=== PATIENT | male | born 1985 | race Caucasian/White ===

== ENCOUNTER 2018-09-08 20:29 | Emergency (ER) | payer SELFPAY ==
[~2018-09-08] VITALS: Ht 190.5 cm; Wt 74.8 kg
--- NOTE | 2018-09-08 20:31 | ED.ADGEN ---
Past History Past Medical History: Other Past Medical History Polysubstance abuse Adult General Chief Complaint Chief Complaint ".. I think somebody gave me rat poison.... They said it was ecstasy... But all it did was make me sick... Short of breath... And sweat.. I am a recovering heroin addict... I know my drugs.. Usually with ecstasy.. your high in 30 minutes... " HPI HPI Patient is a 33 year old male who presents with above hx and complaints dyspnea, nausea, diarrhea, diaphoresis, malaise, after taking reported taking ecstasy at 0200 today. Patient has history of polysubstance abuse and currently in drug rehabilitation for heroin abuse. Patient denies HIV, specific ill contacts, travel. No history of trauma. No history of bad food. Had normal stool today. Does admit to illicit drug use. Patient does smoke. Review of Systems Review of Systems Constitutional: complaints fever and chills [] Eyes: Denies change in visual acuity, redness, or eye pain [] HENT: Denies nasal congestion or sore throat [] Respiratory: Complaints of shortness of breath [] Cardiovascular: No additional information not addressed in HPI [] GI: Denies abdominal pain, vomiting, bloody stools. Complains of nausea and diarrhea [] : Denies dysuria or hematuria [] Musculoskeletal: Denies back pain or joint pain [] Integument: Denies rash or skin lesions [] Neurologic: Denies headache, focal weakness or sensory changes [] Endocrine: Denies polyuria or polydipsia [] All other systems were reviewed and found to be within normal limits, except as documented in this note. Family History Family History Non-contributory Current Medications Current Medications Current Medications Medications (Trade) Dose Ordered Sig/Naheed Start Time Stop Time Status Last Admin Dose Admin Iohexol (Omnipaque 350 Mg/ml) 100 ml 1X ONCE 09/08/18 22:15 09/08/18 22:16 DC 09/08/18 22:20 100 ML Lactated Ringer's 1,000 ml @ 1,000 mls/hr Q1H 09/08/18 20:32 09/08/18 21:32 DC 09/08/18 21:53 1,000 MLS/HR Allergies Allergies Allergies Coded Allergies Type Severity Reaction Last Updated Verified cefixime Allergy Unknown 09/08/18 Yes Physical Exam Physical Exam Constitutional: Well developed, well nourished, no acute distress, non-toxic appearance. [] HENT: Normocephalic, atraumatic, bilateral external ears normal, oropharynx moist, no oral exudates, nose normal. [] Eyes: PERRLA, EOMI, conjunctiva normal, no discharge. [] Neck: Normal range of motion, no tenderness, supple, no stridor. [] Cardiovascular:Heart rate regular rhythm, no murmur [] Lungs & Thorax: Bilateral breath sounds equal at apexes with scattered wheezes on auscultation [] Abdomen: Bowel sounds normal, soft, no tenderness, no masses, no pulsatile masses. [] Skin: Warm, dry, no erythema, no rash. [] Back: No tenderness, no CVA tenderness. [] Extremities: No tenderness, no cyanosis, no clubbing, ROM intact, no edema. [] Neurologic: Alert and oriented X 3, normal motor function, normal sensory function, no focal deficits noted. [] Psychologic: Affect anxious, judgement normal, mood normal. [] Current Patient Data Vital Signs Vital Signs Date Time Temp Pulse Resp B/P (MAP) Pulse Ox O2 Delivery O2 Flow Rate FiO2 09/08/18 23:36 91 18 133/77 (95) 97 Room Air 09/08/18 20:35 98.6 Lab Results Laboratory Tests Test 09/08/18 20:50 09/08/18 21:30 White Blood Count 8.3 x10^3/uL (4.0-11.0) Red Blood Count 5.23 x10^6/uL (4.30-5.70) Hemoglobin 16.3 g/dL (13.0-17.5) Hematocrit 48.2 % (39.0-53.0) Mean Corpuscular Volume 92 fL (79-100) Mean Corpuscular Hemoglobin 31 pg (25-35) Mean Corpuscular Hemoglobin Concent 34 g/dL (31-37) Red Cell Distribution Width 12.9 % (11.5-14.5) Platelet Count 166 x10^3/uL (140-400) Neutrophils (%) (Auto) 74 % (31-73) H Lymphocytes (%) (Auto) 20 % (24-48) L Monocytes (%) (Auto) 5 % (0-9) Eosinophils (%) (Auto) 1 % (0-3) Basophils (%) (Auto) 0 % (0-3) Neutrophils # (Auto) 6.1 x10^3uL (1.8-7.7) Lymphocytes # (Auto) 1.7 x10^3/uL (1.0-4.8) Monocytes # (Auto) 0.4 x10^3/uL (0.0-1.1) Eosinophils # (Auto) 0.0 x10^3/uL (0.0-0.7) Basophils # (Auto) 0.0 x10^3/uL (0.0-0.2) Prothrombin Time 9.9 SEC (9.4-11.4) Prothrombin Time INR 1.0 (0.9-1.1) PTT 29 SEC (23-33) D-Dimer ([place]na) 0.36 mg/L (0.00-0.50) Sodium Level 140 mmol/L (136-145) Potassium Level 3.9 mmol/L (3.5-5.1) Chloride Level 101 mmol/L (98-107) Carbon Dioxide Level 28 mmol/L (21-32) Anion Gap 11 (6-14) Blood Urea Nitrogen 8 mg/dL (8-26) Creatinine 1.0 mg/dL (0.7-1.3) Estimated GFR (Cockcroft-Gault) 87.2 Glucose Level 127 mg/dL (70-99) H Calcium Level 9.5 mg/dL (8.5-10.1) Magnesium Level 1.8 mg/dL (1.8-2.4) Total Bilirubin 0.4 mg/dL (0.2-1.0) Direct Bilirubin 0.1 mg/dL (0.0-0.2) Aspartate Amino Transferase (AST) 16 U/L (15-37) Alanine Aminotransferase (ALT) 40 U/L (16-63) Alkaline Phosphatase 84 U/L (46-116) Creatine Kinase 101 U/L (39-308) Troponin I Quantitative < 0.017 ng/mL (0-0.055) Total Protein 7.4 g/dL (6.4-8.2) Albumin 4.1 g/dL (3.4-5.0) Amylase Level 40 U/L (25-115) Lipase 72 U/L (73-393) L Urine Collection Type Unknown Urine Color Yellow Urine Clarity Clear Urine pH 7.5 Urine Specific [place] 1.015 Urine Protein Neg (NEG-TRACE) Urine Glucose (UA) Neg mg/dL (NEG) Urine Ketones (Stick) Neg mg/dL (NEG) Urine Blood Neg (NEG) Urine Nitrite Neg (NEG) Urine Bilirubin Neg (NEG) Urine Urobilinogen Dipstick 0.2 mg/dL (0.2 mg/dL) Urine Leukocyte Esterase Neg (NEG) Urine RBC 0 /HPF (0-2) Urine WBC Occ /HPF (0-4) Urine Squamous Epithelial Cells Occ /LPF Urine Bacteria 0 /HPF (0-FEW) Urine Opiates Screen Pos (NEG) Urine Methadone Screen Neg (NEG) Urine Barbiturates Neg (NEG) Urine Phencyclidine Screen Neg (NEG) Urine Amphetamine/Methamphetamine Pos (NEG) Urine Benzodiazepines Screen Neg (NEG) Urine Cocaine Screen Neg (NEG) Urine Cannabinoids Screen Pos (NEG) Urine Ethyl Alcohol Neg (NEG) EKG EKG My interpretation EKG shows sinus rhythm at 86 bpm. No findings acute STEMI with contralateral changes[] Radiology/Procedures Radiology/Procedures [[address] [address] IMAGING REPORT Signed PATIENT: ZANE GRANT ACCOUNT: [id number] : 1985 LOCATION: ER AGE: 33 SEX: M EXAM STATUS: REG ER ORD. PHYSICIAN: KAYLEN REEVES MD REASON: ACCIDENTAL INGESTION, ABDOMINAL PAIN PROCEDURE: ABDOMEN SUPINE & UPRIGHT PA and lateral chest x-ray HISTORY: Chest pain. Accidental ingestion. FINDINGS: Heart size normal. Mediastinal silhouette is normal. Air trapping with hyperinflation of the lungs and flattening of the diaphragms could be due to asthma. Emphysema would be unlikely given the patient's age. No pneumothorax, pulmonary opacities or pleural effusions. Bones are unremarkable. IMPRESSION: Hyperinflation of the lungs suggesting air trapping perhaps from asthma exacerbation. AP upright supine abdomen x-rays 2 views HISTORY: Chest and abdomen pain, accidental ingestion. FINDINGS: No pneumoperitoneum. Mild volume of stool right-sided colon and transverse colon. Mild gaseous distention of small bowel loops at the upper and mid abdomen maximum diameter 3.5 cm, with lesser gas distention within the large bowel. Bones and soft tissues are unremarkable. IMPRESSION: Mild gaseous distention of the small bowel could indicate mild changes of ileus or low-grade distal small bowel obstruction. Electronically signed by: Noble Fowler MD (09/08/2018 9:40 PM) [facility] DICTATED AND SIGNED BY: NOBLE FOWLER MD DATE: 09/08/182139 CC: KAYLEN REEVES MD; PCP,NO ~ ][address] [address] IMAGING REPORT Signed PATIENT: ZANE GRANT ACCOUNT: [id number] : 1985 LOCATION: ER AGE: 33 SEX: M EXAM STATUS: REG ER ORD. PHYSICIAN: KAYLEN REEVES MD REASON: DYSPNEA, ABNORMAL CXR PROCEDURE: CT ANGIOGRAPHY CHEST CT angiography chest with contrast PQRS statement: CT scans at this facility use dose reduction including either automated exposure control, iterative reconstructions, and /or weight based radiation dosing via mA and kV modification when appropriate to reduce radiation dose to as low as reasonably achievable. HISTORY: Dyspnea, abnormal chest x-ray. TECHNIQUE: Helical CT imaging the chest with 3-D MIP reconstructions of the pulmonary arteries to assess for emboli with 90 mL Omnipaque 350 intravenous contrast. FINDINGS: Changes of thoracic degenerative disc disease. Left renal upper pole 1 cm cyst density of 7 units. Heart size normal. Thoracic aorta and esophagus are unremarkable. No pulmonary artery emboli. Subcentimeter hilar lymph nodes no enlarged adenopathy in the chest. Bronchial wall thickening with luminal narrowing likely bronchitis. No pneumothorax, pulmonary opacities or pleural effusions. IMPRESSION: 1. No pulmonary artery emboli. 2. Bronchial wall thickening with luminal narrowing likely bronchitis. Electronically signed by: Noble Fowler MD (09/08/2018 10:51 PM) [facility] DICTATED AND SIGNED BY: NOBLE FOWLER MD DATE: 09/08/18 2756 Course & Med Decision Making Course & Med Decision Making Pertinent Labs and Imaging studies reviewed. (See chart for details) Pt. encouraged to avoid illicit drug use. Pt. to follow up with primary. Review pending cultures and labs. Return if any concerns. [] Final Impression Final Impression 1. Hx Polysubstance Abuse[] Dragon Disclaimer Dragon Disclaimer This electronic medical record was generated, in whole or in part, using a voice recognition dictation system. Discharge Summary Visit Information Final Diagnosis Problems Medical Problems: (1) Polysubstance abuse Status: Acute Brief Hospital Course Allergies Allergies Coded Allergies Type Severity Reaction Last Updated Verified cefixime Allergy Unknown 09/08/18 Yes Vital Signs Vital Signs Date Time Temp Pulse Resp B/P (MAP) Pulse Ox O2 Delivery O2 Flow Rate FiO2 09/08/18 23:36 91 18 133/77 (95) 97 Room Air 09/08/18 20:35 98.6 Lab Results Laboratory Tests Test 09/08/18 20:50 09/08/18 21:30 White Blood Count 8.3 x10^3/uL (4.0-11.0) Red Blood Count 5.23 x10^6/uL (4.30-5.70) Hemoglobin 16.3 g/dL (13.0-17.5) Hematocrit 48.2 % (39.0-53.0) Mean Corpuscular Volume 92 fL (79-100) Mean Corpuscular Hemoglobin 31 pg (25-35) Mean Corpuscular Hemoglobin Concent 34 g/dL (31-37) Red Cell Distribution Width 12.9 % (11.5-14.5) Platelet Count 166 x10^3/uL (140-400) Neutrophils (%) (Auto) 74 % (31-73) Lymphocytes (%) (Auto) 20 % (24-48) Monocytes (%) (Auto) 5 % (0-9) Eosinophils (%) (Auto) 1 % (0-3) Basophils (%) (Auto) 0 % (0-3) Neutrophils # (Auto) 6.1 x10^3uL (1.8-7.7) Lymphocytes # (Auto) 1.7 x10^3/uL (1.0-4.8) Monocytes # (Auto) 0.4 x10^3/uL (0.0-1.1) Eosinophils # (Auto) 0.0 x10^3/uL (0.0-0.7) Basophils # (Auto) 0.0 x10^3/uL (0.0-0.2) Prothrombin Time 9.9 SEC (9.4-11.4) Prothromb Time International Ratio 1.0 (0.9-1.1) Activated Partial Thromboplast Time 29 SEC (23-33) D-Dimer ([place]na) 0.36 mg/L (0.00-0.50) Sodium Level 140 mmol/L (136-145) Potassium Level 3.9 mmol/L (3.5-5.1) Chloride Level 101 mmol/L (98-107) Carbon Dioxide Level 28 mmol/L (21-32) Anion Gap 11 (6-14) Blood Urea Nitrogen 8 mg/dL (8-26) Creatinine 1.0 mg/dL (0.7-1.3) Estimated GFR (Cockcroft-Gault) 87.2 Glucose Level 127 mg/dL (70-99) Calcium Level 9.5 mg/dL (8.5-10.1) Magnesium Level 1.8 mg/dL (1.8-2.4) Total Bilirubin 0.4 mg/dL (0.2-1.0) Direct Bilirubin 0.1 mg/dL (0.0-0.2) Aspartate Amino Transf (AST/SGOT) 16 U/L (15-37) Alanine Aminotransferase (ALT/SGPT) 40 U/L (16-63) Alkaline Phosphatase 84 U/L (46-116) Creatine Kinase 101 U/L (39-308) Troponin I Quantitative < 0.017 ng/mL (0-0.055) Total Protein 7.4 g/dL (6.4-8.2) Albumin 4.1 g/dL (3.4-5.0) Amylase Level 40 U/L (25-115) Lipase 72 U/L (73-393) Urine Collection Type Unknown Urine Color Yellow Urine Clarity Clear Urine pH 7.5 Urine Specific [place] 1.015 Urine Protein Neg (NEG-TRACE) Urine Glucose (UA) Neg mg/dL (NEG) Urine Ketones (Stick) Neg mg/dL (NEG) Urine Blood Neg (NEG) Urine Nitrite Neg (NEG) Urine Bilirubin Neg (NEG) Urine Urobilinogen Dipstick 0.2 mg/dL (0.2 mg/dL) Urine Leukocyte Esterase Neg (NEG) Urine RBC 0 /HPF (0-2) Urine WBC Occ /HPF (0-4) Urine Squamous Epithelial Cells Occ /LPF Urine Bacteria 0 /HPF (0-FEW) Urine Opiates Screen Pos (NEG) Urine Methadone Screen Neg (NEG) Urine Barbiturates Neg (NEG) Urine Phencyclidine Screen Neg (NEG) Urine Amphetamine/Methamphetamine Pos (NEG) Urine Benzodiazepines Screen Neg (NEG) Urine Cocaine Screen Neg (NEG) Urine Cannabinoids Screen Pos (NEG) Urine Ethyl Alcohol Neg (NEG) Brief Hospital Course Mr. Grant is a 33 old male with hx of polysubstance use who presented with fears he was given rat poison this morning at 0200 hrs instead of Ectasey. Discharge Information Condition at Discharge: Improved, Stable Disposition/Orders: D/C to Home Dischare Medications Current Medications Lactated Ringer's 1,000 ml @ 1,000 mls/hr Q1H IV Last administered on 09/08/18at 21:53; Admin Dose 1,000 MLS/HR; Start 09/08/18 at 20:32; Stop 09/08/18 at 21:32; Status DC Iohexol (Omnipaque 350 Mg/ml) 100 ml 1X ONCE IV Last administered on 09/08/18at 22:20; Admin Dose 100 ML; Start 09/08/18 at 22:15; Stop 09/08/18 at 22:16; Status DC Dragon Disclaimer This chart was dictated in whole or in part using Voice Recognition software in a busy, high-work load, and often noisy Emergency Department environment. It may contain unintended and wholly unrecognized errors or omissions. KAYLEN REEVES MD Sep 08, 2018 20:31
[2018-09-08] MEDS ORDERED: IV RINGERS SOLUTION,LACTATED 1,000 ML IV SCH (20:32)
[2018-09-08 21:21] LABS: BASO % 0 % (0-3); EOS % 1 % (0-3); HEMATOCRIT 48.2 % (39.0-53.0); HEMOGLOBIN 16.3 g/dL (13.0-17.5); LYMPH # 1.7 x10^3/uL (1.0-4.8); LYMPH % 20 % (24-48); MEAN CORPUSCULAR HEMOGLOBIN 31 pg (25-35); MEAN CORPUSCULAR HGB CONC 34 g/dL (31-37); MEAN CORPUSCULAR VOLUME 92 fL (79-100); MONO # 0.4 x10^3/uL (0.0-1.1); MONO % 5 % (0-9); NEUT # 6.1 x10^3uL (1.8-7.7); NEUT % 74 % (31-73); PLATELET COUNT 166 x10^3/uL (140-400); RED BLOOD COUNT 5.23 x10^6/uL (4.30-5.70); RED CELL DISTRIBUTION WIDTH 12.9 % (11.5-14.5); WHITE BLOOD COUNT 8.3 x10^3/uL (4.0-11.0)
[2018-09-08 21:32] LABS: ALBUMIN 4.1 g/dL (3.4-5.0); CALCIUM 9.5 mg/dL (8.5-10.1); DIRECT BILIRUBIN 0.1 mg/dL (0.0-0.2); GFR 87.2; MAGNESIUM 1.8 mg/dL (1.8-2.4); POTASSIUM 3.9 mmol/L (3.5-5.1); TOTAL BILIRUBIN 0.4 mg/dL (0.2-1.0); TOTAL PROTEIN 7.4 g/dL (6.4-8.2)
--- NOTE | 2018-09-08 21:43 | RAD ---
PA and lateral chest x-ray HISTORY: Chest pain. Accidental ingestion. FINDINGS: Heart size normal. Mediastinal silhouette is normal. Air trapping with hyperinflation of the lungs and flattening of the diaphragms could be due to asthma. Emphysema would be unlikely given the patient's age. No pneumothorax, pulmonary opacities or pleural effusions. Bones are unremarkable. IMPRESSION: Hyperinflation of the lungs suggesting air trapping perhaps from asthma exacerbation. AP upright supine abdomen x-rays 2 views HISTORY: Chest and abdomen pain, accidental ingestion. FINDINGS: No pneumoperitoneum. Mild volume of stool right-sided colon and transverse colon. Mild gaseous distention of small bowel loops at the upper and mid abdomen maximum diameter 3.5 cm, with lesser gas distention within the large bowel. Bones and soft tissues are unremarkable. IMPRESSION: Mild gaseous distention of the small bowel could indicate mild changes of ileus or low-grade distal small bowel obstruction. Electronically signed by: Murtaza Fowler MD (09/08/2018 9:40 PM) [facility]
[2018-09-08] MEDS ORDERED: IOHEXOL 350 MG/ML 100 ML VIAL. IV ONE (22:15)
[2018-09-08 22:30] LABS: BARBITURATES NEG (NEG); BENZODIAZEPINES NEG (NEG); CANNABINOIDS POS (NEG); COCAINE NEG (NEG); METHADONE NEG (NEG); OPIATES POS (NEG); PHENCYCLIDINE NEG (NEG)
[2018-09-08 22:33] LABS: AMPHETAMINE/METHAMPHETAMINE POS (NEG)
[2018-09-08 22:41] LABS: BACTERIA,URINE 0 /HPF (0-FEW); BILIRUBIN,URINE NEG (NEG); CLARITY,URINE CLEAR; COLOR,URINE YELLOW; GLUCOSE,URINE NEG (NEG); NITRITE,URINE NEG (NEG); RBC,URINE 0 /HPF (0-2); SQUAMOUS EPITHELIAL CELL,UR OCC /LPF; UROBILINOGEN,URINE 0.2 mg/dL (0.2 mg/dL); WBC,URINE OCC /HPF (0-4)
--- NOTE | 2018-09-08 22:54 | RAD ---
CT angiography chest with contrast PQRS statement: CT scans at this facility use dose reduction including either automated exposure control, iterative reconstructions, and /or weight based radiation dosing via mA and kV modification when appropriate to reduce radiation dose to as low as reasonably achievable. HISTORY: Dyspnea, abnormal chest x-ray. TECHNIQUE: Helical CT imaging the chest with 3-D MIP reconstructions of the pulmonary arteries to assess for emboli with 90 mL Omnipaque 350 intravenous contrast. FINDINGS: Changes of thoracic degenerative disc disease. Left renal upper pole 1 cm cyst density of 7 units. Heart size normal. Thoracic aorta and esophagus are unremarkable. No pulmonary artery emboli. Subcentimeter hilar lymph nodes no enlarged adenopathy in the chest. Bronchial wall thickening with luminal narrowing likely bronchitis. No pneumothorax, pulmonary opacities or pleural effusions. IMPRESSION: 1. No pulmonary artery emboli. 2. Bronchial wall thickening with luminal narrowing likely bronchitis. Electronically signed by: Murtaza Fowler MD (09/08/2018 10:51 PM) [facility]
[2018-09-08 23:36] VITALS: BP 133/77
--- NOTE | 2018-09-12 07:43 | EKG ---
[address] [address] Test Date: 2018-09-08 Test Time: 21:12:37 Pat Name: ZANE ROBERSON Department: Room: Gender: M Obgyn Nurse: CAROL : 1985 Requested By: KAYLEN REEVES Order Number: [id number] Reading MD: Measurements Intervals [place] Rate: 86 P: 77 AR: 142 QRS: 76 QRSD: 100 T: 70 QT: 372 QTc: 448 Interpretive Statements SINUS RHYTHM S1,S2,S3 PATTERN NO SPECIFIC ECG ABNORMALITIES RI6.01 No previous ECG available for comparison
== END 2018-09-08 23:47 | disposition home or self-care (01) ==
LOC: ER 20:29
DX: F19.10 Other psychoactive substance abuse, uncomplicated (principal); R19.7 Diarrhea, unspecified; Z88.1 Allergy status to other antibiotic agents
CPT/HCPCS: 36415; 71046; 71275; 74019; 80048; 80076; 80307; 81001; 82150; 82550; 83690; 83735; 84443; 84484; 85025; 85379; 85610; 85730; 86703; 93005; 96360; 99285; J7120; Q9967

== ENCOUNTER → 2020-02-02 | Outpatient (CLI) | payer OTHER ==
--- NOTE | 2020-02-02 13:46 | RAD ---
EXAM: ABDOMINAL ULTRASOUND. HISTORY: Follow-up cystic lesion. History of hepatitis C.. COMPARISON: CT angiogram chest 09/08/2018. FINDINGS: Sonographic evaluation of the abdomen was performed. The liver appears normal in parenchymal echotexture. There are no focal lesions. Liver measures 13.2 cm. The spleen measures 10.7 cm. The gallbladder is unremarkable without evidence of stones, wall thickening or pericholecystic fluid. There is no sonographic Richardson sign. The common duct measures 8 mm. Visualized pancreas shows diffuse ductal dilation up to 3 mm. The right kidney measures 10.9 x 5.8 x 4.4 cm. Cortical thickness and echogenicity are preserved. There is no hydronephrosis. The left kidney measures 10.3 x 4.8 x 5.1 cm. Cortical thickness and echogenicity are preserved. There is no hydronephrosis. Lateral left renal superior pole cyst measuring 1.4 x 1.2 x 1.3 cm is noted. The visualized portions of the abdominal aorta and inferior vena cava are grossly patent and normal in caliber. IMPRESSION: Dilated common bile duct and pancreatic duct with no mass or biliary stones identified. More detailed evaluation could be pursued with abdominal MRI with MRCP if clinically warranted. Electronically signed by: Jackson Harding MD (02/02/2020 1:43 PM) [id number]
== END ==
LOC: US 08:49
PROVIDERS: ATTEND Nurse Practitioner Family
DX: N28.1 Cyst of kidney, acquired (principal); Z86.19 Personal history of other infectious and parasitic diseases
CPT/HCPCS: 76700

== ENCOUNTER 2020-07-14 06:44 | Emergency (ER) | payer SELFPAY ==
[~2020-07-14] VITALS: Ht 190.5 cm; Wt 88.0 kg
[2020-07-14 06:44] VITALS: BP 134/78
[2020-07-14] MEDS ORDERED: BENZOCAINE 20% ORAL GEL 11.9GM TUBE. TP PRN (07:15)
[2020-07-14] MEDS ORDERED: BENZ5.1G MM (07:23)
[2020-07-14] MEDS ORDERED: CLIN300C9 PO (07:23)
--- NOTE | 2020-07-14 07:24 | PHYS DOC ---
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 Took 1 percocet given to him from his aunt, " Tylenol and Motrin do nothing." Admits to smoking marijuana. Reports associated mild headache. No associated bleeding, fever, neck stiffness or swelling, locked jaw, raised tongue, difficulties breathing, drooling/spitting, facial droop or blurry vision. Review of Systems: Review of Systems: Constitutional: Denies fever or chills Eyes: Denies change in visual acuity or red eye HENT: Denies nasal congestion or sore throat Respiratory: Denies cough or shortness of breath Cardiovascular: Denies chest pain or syncope GI: Denies nausea, vomiting, Musculoskeletal: Denies back pain or joint pain Integument: Denies rash or diaphoresis Neurologic: Denies headache, neck stiffness, focal weakness or sensory changes Endocrine: Denies polyuria or polydipsia Psychiatric: Denies depression or anxiety Allergies: Allergies: Allergies Coded Allergies Type Severity Reaction Last Updated Verified cefixime Allergy Unknown 09/08/18 Yes Physical Exam: PE: Constitutional: non-toxic appearance, afebrile, smells of marijuana HENT: Normocephalic, atraumatic, poor dentition with multiple caries, approximately tooth #4 -half of tooth missing with decay no pulp visualized, periapical abscess seen, left cheek swollen over zygoma/near location of tooth w/no erythema or rash, no oral bleeding Eyes: EOMI, conjunctiva normal, no discharge. Neck: Normal range of motion, supple, no nuchal rigidity or meningismus Cardiovascular: S1/2 present, regular rhythm Lungs & Thorax: Speaking in full sentences, bilateral equal chest rise, no tachypnea or increased work of breathing Abdomen: soft, no tenderness, Skin: Warm, dry, no erythema, no rash, no antecubital forearm track gonsalez Extremities: No tenderness, no cyanosis, no edema Neurologic: Alert and oriented X 3, normal motor function, normal sensory function, no focal deficits noted. [] Psychologic: Affect normal, judgement normal, mood normal. [] EKG: EKG: [] Radiology/Procedures: Radiology/Procedures: [] Heart Score: C/O Chest Pain: No Risk Factors: Risk Factors: DM, Current or recent (<one month) smoker, HTN, HLP, family history of CAD, obesity. Risk Scores: Score 0 - 3: 2.5% MACE over next 6 weeks - Discharge Home Score 4 - 6: 20.3% MACE over next 6 weeks - Admit for Clinical Observation Score 7 - 10: 72.7% MACE over next 6 weeks - Early Invasive Strategies Course & Med Decision Making: Course & Med Decision Making Pertinent Labs and Imaging studies reviewed. (See chart for details) Concern for acute pulse tightness with periapical abscess and cheek swelling in a well-appearing patient, afebrile with no nuchal rigidity or meningismus. Patient does report a headache. Was cautiously advised against taking further opioids given history of heroin addiction, has been sober for 1 year. Orajel given in ED. Will prescribe clindamycin and recommend dental clinic follow-up within 24 hours -referral list given including a list of local rehabs.Will discharge home with strict ED return precautions were given for no rigidity, headache, fever, difficulties breathing, neck swelling or stiffness, blurry vision, or spitting/drooling/speech changes. Encouraged urgent outpatient follow-up with PMD and [specialist]. Life-threatening processes were considered but are low suspicion at this time, given history, physical exam and ED workup. Pt was educated on all prescription medications and adverse effects. All patient's questions were answered and pt was stable at time of discharge. Life/limb-threatening differential includes but is not limited to, Dwight's angina, infection (periodontal or peritonsillar abscess, retropharyngeal abscess, Vincents angina, ANUG, pharyngeal/criminal justice professor/buccal space infection), trauma or fracture, dental fracture/subluxation/avulsion, dental bleeding or hemorrhage/DIC, pulpitis, alveolar osteitis or neoplasm I spoken with the patient and her caregivers. I explained the patient's condition, diagnoses and treatment plan based on the information available to me at this time. I have answered the patient and her caregiver's questions and addressed any concerns. The patient and her caregivers have a good understanding of patient's diagnosis, condition and treatment plan as can be expected at this point. Vital signs have been stable. Patient's condition is stable and appropriate for discharge from the emergency department. Patient will pursue further outpatient evaluation with primary care physician or other designated or consulting physician as outlined in the discharge instructions. The patient and/or caregivers are agreeable to this plan of care and follow-up instructions have been explained in detail. The patient and/or caregivers have received these instructions in written form and have expressed an understanding of the discharge instructions. The patient and/or caregivers are aware that any significant change of condition or worsening of symptoms should prompt immediate return to this or the closest emergency department or call to [id number] Disclaimer: [employer] Disclaimer: This electronic medical record was generated, in whole or in part, using a voice recognition dictation system. Departure Departure: Impression: Primary Impression: Acute pulpitis Additional Impressions: Periapical abscess Cheek swelling Disposition: HOME / SELF CARE / HOMELESS Condition: STABLE [facility]errals: P[facility]NO (PCP) [facility] [address] [id number] OR [address] [phone] Patient Instructions: Dental Abscess, Dental Caries Additional Instructions: EMERGENCY DEPARTMENT GENERAL DISCHARGE INSTRUCTIONS Thank you for coming to [facility] (ED) today and trusting us with you care. We trust that you had a positivie experience in our Emergency Department. If you wish to speak to the department management, you may call the director at [phone]. YOUR FOLLOW UP INSTRUCTIONS ARE FOLLOWS: 1. Do you have a private Doctor? If you do not have a private doctor, please ask for a resource list of physicians or clinics that may be able to assist you with follow up care. 2. The Emergency Physician has interpreted your x-rays. The X-Ray specialist will also review them. If there is a change in the findings, you will be notified in 48 hours when at all possible. 3. A lab test or culture has been done, your results will be reviewed and you will be notified if you need a change in treatment. ADDITIONAL INSTRUCTIONS AND INFORMATION: 1. Your care today has been supervised by a physician who is specially trained in emergency care. Many problems require more than one evaluation for a complete diagnosis and treatment. We recommend that you schedule your follow up appointment as recommended to ensure complete treatment of you illness or injury. If you are unable to obtain follow up care and continue to have a problem, or if your condition worsens, we recommend that you return to the ED. 2. We are not able to safely determine your condition over the phone nor are we able to give sound medical advice over the phone. For these safety reasons, if you call for medical advice we will ask you to come to the ED for further evaluation. 3. If you have any questions regarding these discharge instructions please call the ED at [phone]. SAFETY INFORMATION: In the interest of safety, wellness, and injury prevention; we encourage you to wear your sealbelt, if you smoke; quite smoking, and we encourage family to use a protective helmet for bicycling and other sporting events that present an increased risk for head injury. IF YOUR SYMPTOMS WORSEN OR NEW SYMPTOMS DEVELOP, OR YOU HAVE CONCERNS ABOUT YOUR CONDITION; OR IF YOUR CONDITION WORSENS WHILE YOU ARE WAITING FOR YOUR FOLLOW UP APPOINTMENT; EITHER CONTACT YOUR PRIMARY CARE DOCTOR, THE PHYSICIAN WHOSE NAME AND NUMBER YOU WERE GIVEN, OR RETURN TO THE ED IMMEDIATELY. Scripts Benzocaine/Menthol/Zinc Chlor (Orajel 3X Mouth Sores Gel) 5.1 Gm Gel..gram. 5.1 GM MM TID PRN for PAIN for 3 Days, #9 EACH 0 Refills Prov: JARED JACOBS DO 07/14/20 Clindamycin Hcl (CLINDAMYCIN HCL) 300 Mg Capsule 1 CAP PO TID for dental abscess for 10 Days, #30 CAP take with a probiotic Prov: JARED JACOBS DO 07/14/20 JARED JACOBS DO July 14, 2020 07:24
== END 2020-07-14 07:35 | disposition home or self-care (01) ==
LOC: ER 06:44
DX: K04.01 Reversible pulpitis (principal); K04.7 Periapical abscess without sinus; R22.0 Localized swelling, mass and lump, head; F12.10 Cannabis abuse, uncomplicated; F15.10 Other stimulant abuse, uncomplicated; Z88.1 Allergy status to other antibiotic agents
CPT/HCPCS: 99283

== ENCOUNTER 2020-11-01 01:59 | Emergency (ER) | payer SELFPAY ==
[~2020-11-01] VITALS: Ht 188 cm; Wt 70.3 kg
[~2020-11-01 01:59] MED LIST: BENZ5.1G MM; CLIN300C9 PO
[2020-11-01] MEDS ORDERED: IV NORMAL SALINE 1,000ML 1,000 ML IV SCH (02:30)
[2020-11-01] MEDS ORDERED: ONDANSETRON PF 4 MG/2 ML VIAL. IVP ONE (02:30)
--- NOTE | 2020-11-01 03:00 | PHYS DOC ---
Past History Past Medical History: Anxiety Past Surgical History: Other Additional Past Surgical Histo: reonstruction surgery to bilateral eardrums Alcohol Use: None Drug Use: Heroin, Marijuana, Methamphetamine, Other General Adult EDM: Chief Complaint: NAUSEA/VOMITING/DIARRHEA HPI: HPI: 35-year-old male with no reported past medical history presents to the emergency department complaining of nausea vomiting and diarrhea for the past 3 weeks. He reports several loose stools over the last 24 hours. He reports one stool last week was next of blood but he has no other bloody stools. He denies any recent travel, recent antibiotic use, recent hospitalizations. He also further denies any abdominal pain, fever, chills, shortness of breath, cough, chest pain. He was seen at urgent care yesterday for similar symptoms and was given rx for zofran which he has at home. He had a negative covid test at urgent care 2 days ago. Review of Systems: Review of Systems: Review of systems otherwise negative except what was mentioned in the HPI Current Medications: Current Meds: Current Medications Medications (Trade) Dose Ordered Sig/Naheed Start Time Stop Time Status Last Admin Dose Admin Ondansetron HCl (Zofran) 4 mg 1X ONCE 11/01/20 02:30 11/01/20 02:31 DC 11/01/20 00:46 4 MG Sodium Chloride 1,000 ml @ 1,000 mls/hr Q1H 11/01/20 02:30 11/01/20 03:29 11/01/20 02:45 1,000 MLS/HR Allergies: Allergies: Allergies Coded Allergies Type Severity Reaction Last Updated Verified cefixime Allergy Unknown 09/08/18 Yes Physical Exam: PE: Constitutional: No acute distress, non-toxic appearance. HENT: Atraumatic, bilateral external ears normal, nose normal. Neck: Normal range of motion, supple, no stridor. Cardiovascular: Heart rate regular rhythm. 2+ radial pulses Lungs & Thorax: No respiratory distress, symmetrical expansion. Abdomen: Soft, no tenderness Skin: Warm, dry. Extremities: No tenderness, no cyanosis, ROM intact, no edema. Neurologic: Alert and oriented X 3, normal motor function, normal sensory function, no focal deficits noted. Non ataxic gait. GCS 15. Psychologic: Affect normal, judgment normal, mood normal. Current Patient Data: Labs: Laboratory Tests Test 11/01/20 02:45 White Blood Count 7.4 x10^3/uL (4.0-11.0) Red Blood Count 5.41 x10^6/uL (4.30-5.70) Hemoglobin 17.5 g/dL (13.0-17.5) Hematocrit 50.1 % (39.0-53.0) Mean Corpuscular Volume 93 fL (79-100) Mean Corpuscular Hemoglobin 32 pg (25-35) Mean Corpuscular Hemoglobin Concent 35 g/dL (31-37) Red Cell Distribution Width 12.6 % (11.5-14.5) Platelet Count 148 x10^3/uL (140-400) Neutrophils (%) (Auto) 53 % (31-73) Lymphocytes (%) (Auto) 33 % (24-48) Monocytes (%) (Auto) 12 % (0-9) H Eosinophils (%) (Auto) 2 % (0-3) Basophils (%) (Auto) 1 % (0-3) Neutrophils # (Auto) 3.9 x10^3uL (1.8-7.7) Lymphocytes # (Auto) 2.5 x10^3/uL (1.0-4.8) Monocytes # (Auto) 0.9 x10^3/uL (0.0-1.1) Eosinophils # (Auto) 0.1 x10^3/uL (0.0-0.7) Basophils # (Auto) 0.0 x10^3/uL (0.0-0.2) Sodium Level 140 mmol/L (136-145) Potassium Level 5.3 mmol/L (3.5-5.1) H Chloride Level 104 mmol/L (98-107) Carbon Dioxide Level 26 mmol/L (21-32) Anion Gap 10 (6-14) Blood Urea Nitrogen 20 mg/dL (8-26) Creatinine 0.6 mg/dL (0.7-1.3) L Estimated GFR (Cockcroft-Gault) 155.2 BUN/Creatinine Ratio 33 (6-20) H Glucose Level 101 mg/dL (70-99) H Calcium Level 8.2 mg/dL (8.5-10.1) L Total Bilirubin 0.6 mg/dL (0.2-1.0) Aspartate Amino Transferase (AST) 40 U/L (15-37) H Alanine Aminotransferase (ALT) 31 U/L (16-63) Alkaline Phosphatase 80 U/L (46-116) Creatine Kinase 141 U/L (39-308) Total Protein 7.0 g/dL (6.4-8.2) Albumin 3.7 g/dL (3.4-5.0) Albumin/Globulin Ratio 1.1 (1.0-1.7) Lipase 101 U/L (73-393) Vital Signs: Vital Signs Date Time Temp Pulse Resp B/P (MAP) Pulse Ox O2 Delivery O2 Flow Rate FiO2 11/01/20 02:09 97.9 66 16 132/72 (92) 100 Room Air Heart Score: C/O Chest Pain: No Course & Med Decision Making: Course & Med Decision Making Labs within normal limits, patient appears improved upon discharge. Was counseled on return precautions. He has Zofran at home. He was urged to follow-up with primary care doctor as well as a GI doctor. non focal abdominal exam today My Orders - MARISELA HAAS DO Procedure Category Date Status Time Ondansetron Pf PHA 11/01/20 Complete (Zofran) 02:30 Cbc W [employer] LAB 11/01/20 Complete 02:20 Lipase LAB 11/01/20 Complete 02:20 Creatine Kinase LAB 11/01/20 Complete 02:20 Comprehensive LAB 11/01/20 Complete Metabolic Panel 02:20 Iv Normal Saline PHA 11/01/20 Complete 1,000ml (Iv Sodium 02:30 Departure Departure: Impression: Primary Impression: Acute diarrhea Disposition: HOME / SELF CARE / HOMELESS Condition: STABLE Referrals: JOSE DOWNEY MD (PCP) KINJAL CA MD Patient Instructions: Diet for Diarrhea, Adult Additional Instructions: You were seen in the emergency department for nausea and vomiting. You could have a viral illness which should resolve in the next few days to a week. Drink at least 6-8 glasses of water per day to help stay hydrated if you can tolerate drinking water. You may also supplement with gatorade. Please avoid alcohol while you are ill. You should return to the ED if you develop abdominal pain, fever > 100.3, black/bloody stools, black/bloody vomiting, cannot eat or drink without vomiting, or have any other new or concerning symptoms. MARISELA HAAS DO Nov 01, 2020 03:00
[2020-11-01 03:06] LABS: BASO % 1 % (0-3); EOS # 0.1 x10^3/uL (0.0-0.7); EOS % 2 % (0-3); HEMATOCRIT 50.1 % (39.0-53.0); HEMOGLOBIN 17.5 g/dL (13.0-17.5); LYMPH # 2.5 x10^3/uL (1.0-4.8); LYMPH % 33 % (24-48); MEAN CORPUSCULAR HEMOGLOBIN 32 pg (25-35); MEAN CORPUSCULAR HGB CONC 35 g/dL (31-37); MEAN CORPUSCULAR VOLUME 93 fL (79-100); MONO # 0.9 x10^3/uL (0.0-1.1); MONO % 12 % (0-9); NEUT # 3.9 x10^3uL (1.8-7.7); NEUT % 53 % (31-73); PLATELET COUNT 148 x10^3/uL (140-400); RED BLOOD COUNT 5.41 x10^6/uL (4.30-5.70); RED CELL DISTRIBUTION WIDTH 12.6 % (11.5-14.5); WHITE BLOOD COUNT 7.4 x10^3/uL (4.0-11.0)
[2020-11-01 03:28] LABS: CALCIUM 8.2 mg/dL (8.5-10.1); CREATININE 0.6 mg/dL (0.7-1.3); GFR 155.2
[2020-11-01 03:34] LABS: ALBUMIN 3.7 g/dL (3.4-5.0); ALBUMIN/GLOBULIN RATIO 1.1 (1.0-1.7); TOTAL BILIRUBIN 0.6 mg/dL (0.2-1.0)
[2020-11-01 03:35] LABS: POTASSIUM 5.3 mmol/L (3.5-5.1)
[2020-11-01 03:49] VITALS: BP 128/76
== END 2020-11-01 03:58 | disposition home or self-care (01) ==
LOC: ER 01:59
DX: R11.2 Nausea with vomiting, unspecified (principal); R19.7 Diarrhea, unspecified; F41.9 Anxiety disorder, unspecified; F12.10 Cannabis abuse, uncomplicated; F15.10 Other stimulant abuse, uncomplicated
CPT/HCPCS: 36415; 80053; 82550; 83690; 85025; 96361; 96374; 99284; J2405; J7030

== ENCOUNTER 2021-01-14 20:53 | Emergency (ER) | payer BC ==
[~2021-01-14] VITALS: Ht 188 cm; Wt 84.0 kg
[~2021-01-14 20:53] MED LIST changes: +CLIN-95 PO; -CLIN300C9 PO
[2021-01-14] MEDS ORDERED: IBUPROFEN 600 MG TABLET. PO ONE (22:00)
--- NOTE | 2021-01-14 22:03 | PHYS DOC ---
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 Patient states his symptoms started 3 days ago. Patient denies cough, shortness of breath, nausea/vomiting. Denies recent exposure. Patient states he took Tylenol an hour before he arrived. Highest temperature at home was 101. Denies medical history. (KEAGAN JONES APRN) Review of Systems: Review of Systems: Constitutional: Denies fever or chills Eyes: Denies change in visual acuity HENT: Denies nasal congestion or sore throat Respiratory: Denies cough or shortness of breath Cardiovascular: Denies chest pain or edema GI: Denies abdominal pain, nausea, vomiting, bloody stools or diarrhea : Denies dysuria Musculoskeletal: Denies back pain or joint pain Integument: Denies rash Neurologic: Denies headache, focal weakness or sensory changes Endocrine: Denies polyuria or polydipsia Lymphatic: Denies swollen glands Psychiatric: Denies depression or anxiety (KEAGAN JONES APRN) Current Medications: Current Meds: Current Medications Medications (Trade) Dose Ordered Sig/Naheed Start Time Stop Time Status Last Admin Dose Admin Ibuprofen (Motrin) 600 mg 1X ONCE 01/14/21 22:00 01/14/21 22:01 UNV (KEAGAN JONES APRN) Allergies: Allergies: Allergies Coded Allergies Type Severity Reaction Last Updated Verified cefixime Allergy Unknown 09/08/18 Yes (KEAGAN JONES APRN) Physical Exam: PE: Constitutional: Well developed, well nourished, no acute distress, non-toxic a ppearance. [] HENT: Normocephalic, atraumatic, bilateral external ears normal, oropharynx moist, no oral exudates, nose normal. [] Eyes: PERRLA, EOMI, conjunctiva normal, no discharge. [] Neck: Normal range of motion, no tenderness, supple, no stridor. [] Cardiovascular:Heart rate regular rhythm, no murmur [] Lungs & Thorax: Bilateral breath sounds clear to auscultation [] Abdomen: Bowel sounds normal, soft, no tenderness, no masses, no pulsatile masses. [] Skin: Warm, dry, no erythema, no rash. [] Back: No tenderness, no CVA tenderness. [] Extremities: No tenderness, no cyanosis, no clubbing, ROM intact, no edema. [] Neurologic: Alert and oriented X 3, normal motor function, normal sensory function, no focal deficits noted. [] Psychologic: Affect normal, judgement normal, mood normal. [] (KEAGAN JONES APRN) Current Patient Data: Vital Signs: Vital Signs Date Time Temp Pulse Resp B/P (MAP) Pulse Ox O2 Delivery O2 Flow Rate FiO2 01/14/21 21:12 99.7 82 18 144/85 (104) 97 Room Air (KEAGAN JONES APRN) EKG: EKG: [] (KEAGAN JONES APRN) Radiology/Procedures: Radiology/Procedures: [] (KEAGAN JONES APRN) Heart Score: C/O Chest Pain: No Risk Factors: Risk Factors: DM, Current or recent (<one month) smoker, HTN, HLP, family history of CAD, obesity. Risk Scores: Score 0 - 3: 2.5% MACE over next 6 weeks - Discharge Home Score 4 - 6: 20.3% MACE over next 6 weeks - Admit for Clinical Observation Score 7 - 10: 72.7% MACE over next 6 weeks - Early Invasive Strategies (KEAGAN JONES APRN) Course & Med Decision Making: Course & Med Decision Making Pertinent Labs and Imaging studies reviewed. (See chart for details) [] 35-year-old male presents with fever and chills. Fever and chills treated in the emergency room with ibuprofen. Advised patient to take ibuprofen and Tyle nol at home. Patient tested for influenza and Covid. Advised patient it may take 2 to 3 days to receive Covid results. Discussed quarantining. Patient given a work note. Patient voiced understanding and agreement with discharge plan. Discussed return precautions in length (KEAGAN JONES APRN) Dragon Disclaimer: Dragon Disclaimer: This electronic medical record was generated, in whole or in part, using a voice recognition dictation system. (KEAGAN JONES APRN) Attending Co-Sign The patient was seen and interviewed as well as examined at the bedside. The c romero was reviewed. The case was discussed. Agree with the plan of care. (RAYMOND MONTAÑO DO) Departure Departure: Impression: Primary Impression: Fever Qualified Codes: R50.9 - Fever, unspecified Disposition: HOME / SELF CARE / HOMELESS Condition: STABLE Referrals: PCP,NO (PCP) Patient Instructions: Fever Additional Instructions: You are seen in the emergency room for fever. Your influenza test was negative. We have to send out your Covid test may take 2 to 3 days to return. Please quarantine until results return. Make sure you are taking Motrin and Tylenol at home. Drink plenty of fluids. Return to emergency room if you have worsening symptoms or concerns. EMERGENCY DEPARTMENT GENERAL DISCHARGE INSTRUCTIONS Thank you for coming to [facility] (ED) today and trusting us with you care. We trust that you had a positivie experience in our Emergency Department. If you wish to speak to the department management, you may call the director at [phone]. YOUR FOLLOW UP INSTRUCTIONS ARE FOLLOWS: 1. Do you have a private Doctor? If you do not have a private doctor, please ask for a resource list of physicians or clinics that may be able to assist you with follow up care. 2. The Emergency Physician has interpreted your x-rays. The X-Ray specialist will also review them. If there is a change in the findings, you will be notified in 48 hours when at all possible. 3. A lab test or culture has been done, your results will be reviewed and you will be notified if you need a change in treatment. ADDITIONAL INSTRUCTIONS AND INFORMATION: 1. Your care today has been supervised by a physician who is specially trained in emergency care. Many problems require more than one evaluation for a complete diagnosis and treatment. We recommend that you schedule your follow up appointment as recommended to ensure complete treatment of you illness or injury. If you are unable to obtain follow up care and continue to have a problem, or if your condition worsens, we recommend that you return to the ED. 2. We are not able to safely determine your condition over the phone nor are we able to give sound medical advice over the phone. For these safety reasons, if you call for medical advice we will ask you to come to the ED for further evaluation. 3. If you have any questions regarding these discharge instructions please call the ED at [phone]. SAFETY INFORMATION: In the interest of safety, wellness, and injury prevention; we encourage you to wear your sealbelt, if you smoke; quite smoking, and we encourage family to use a protective helmet for bicycling and other sporting events that present an increased risk for head injury. IF YOUR SYMPTOMS WORSEN OR NEW SYMPTOMS DEVELOP, OR YOU HAVE CONCERNS ABOUT YOUR CONDITION; OR IF YOUR CONDITION WORSENS WHILE YOU ARE WAITING FOR YOUR FOLLOW UP APPOINTMENT; EITHER CONTACT YOUR PRIMARY CARE DOCTOR, THE PHYSICIAN WHOSE NAME AND NUMBER YOU WERE [place] JUNIOR, OR RETURN TO THE ED IMMEDIATELY. KEAGAN JONES APRN Jan 14, 2021 22:03 RAYMOND MONTAÑO DO Jan 20, 2021 06:32
[2021-01-14 23:13] LABS: INFLUENZA A PATIENT NEGATIVE (NEGATIVE); INFLUENZA B PATIENT NEGATIVE (NEGATIVE)
[2021-01-15 01:16] VITALS: BP 114/72
== END 2021-01-15 01:18 | disposition home or self-care (01) ==
LOC: ER 20:53
DX: R50.9 Fever, unspecified (principal); R19.7 Diarrhea, unspecified; F41.9 Anxiety disorder, unspecified; Z20.822 Contact with and (suspected) exposure to COVID-19; Z88.8 Allergy status to other drugs, medicaments and biological substances
CPT/HCPCS: 87426; 87804; 99283; C9803; U0003